=== PATIENT | female | born 1995 | race Caucasian/White ===

== ENCOUNTER 2017-03-23 12:17 | Emergency (ER) | payer OTHER ==
[2017-03-23 16:21] VITALS: BP 142/81
--- NOTE | 2017-03-23 17:17 | UC ---
Lower Extremity/Ankle HPI - HPI Summary HPI Summary: pt statse she rolled her L ankle while walking in heels night(2 days ago). she is c/o ongoing pain and swelling. she was not able to weight bear after but can walk on it today. denies other injury, fever, numb/weakness. - History of Current Complaint Chief Complaint: UCLowerExtremity Stated Complaint: LEFT ANKLE INJURY Time Seen by Provider: 03/23/17 17:04 Hx Obtained From: Patient Hx Last Menstrual Period: 03/18/17 ?: No Onset/Duration: Sudden Onset Severity Initially: Moderate Pain Intensity: 5 Aggravating Factor(s): Ambulation Alleviating Factor(s): Rest, Elevation, Ice Able to Bear Weight: Yes - Risk Factors Gout Risk Factors: Negative DVT Risk Factors: Negative - Allergies/Home Medications Allergies/Adverse Reactions: Allergies Allergy/AdvReac Type Severity Reaction Status Date / Time No Known Allergies Allergy Verified 03/23/17 16:21 Home Medications: Home Medications Norgestrel-Ethinyl Estradiol [Cryselle-28] 1 tab PO BEDTIME 03/23/17 [History Confirmed 03/23/17] Sertraline* [Zoloft*] 200 mg PO BEDTIME 03/23/17 [History Confirmed 03/23/17] PMH/Surg Hx/FS Hx/Imm Hx - Additional Past Medical History Additional PMH: depression and per triage notes - Surgical History Surgical History: None - Family History Known Family History: Positive: None - Social History Occupation: Student Alcohol Use: Weekly Substance Use Type: None Smoking Status (MU): Never Smoked Tobacco Review of Systems Constitutional: Negative Skin: Negative Neurovascular: Negative Musculoskeletal: Decreased ROM, Edema Is Patient Immunocompromised?: No All Other Systems Reviewed And Are Negative: Yes Physical Exam Triage Information Reviewed: Yes Appearance: Well-Appearing Vital Signs: Initial Vital Signs Temp 98 F 03/23/17 16:10 Pulse 74 03/23/17 16:10 Resp 14 03/23/17 16:10 BP 142/81 03/23/17 16:10 Pulse Ox 98 03/23/17 16:10 Vital Signs Reviewed: Yes Eyes: Positive: Conjunctiva Clear ENT: Positive: Normal ENT inspection Neck exam: Normal Respiratory: Positive: Lungs clear, Normal breath sounds, No respiratory distress Cardiovascular: Positive: RRR, No Murmur Abdomen Description: Positive: Nontender, No Organomegaly, Soft Bowel Sounds: Positive: Present Musculoskeletal: Positive: Other: - L ankle with mild generalized swelling and tenderness, pain limits rom. achilles is intact. no injury above or below the ankle with foot having full s/v/m function Neurological: Positive: Alert Skin Exam: Normal Lower Extremity Course/Dx - Course Course Of Treatment: distal fibular fx, joint space appears intact. will place in cam boot with crutches and orthopedic follow up. - Differential Dx/Diagnosis Provider Diagnoses: Fracture R ankle(distal fibula) Discharge - Discharge Plan Condition: Stable Disposition: HOME Discharge Disposition Comment: WEAR THE SPLINT AND USE THE CRUTCHES UNTIL CLEARED BY ORTHOPEDICS Patient Education Materials: Ankle Fracture (DC) Referrals: Sujit Muller MD [Medical Doctor] - 2 Days
--- NOTE | 2017-03-23 17:54 | RAD ---
Indication: LEFT ankle pain and edema following rolling injury yesterday. Medial and lateral pain and swelling. Comparison: No relevant prior exams available on the [facility] PACS for comparison. Technique: AP, mortise, and lateral views LEFT ankle. Report: Nondisplaced avulsion fracture at the caudal margin of the lateral malleolus. The ankle mortise remains congruent. Significant soft tissue swelling over the lateral malleolus. Talocrural joint effusion. IMPRESSION: Nondisplaced King type A fracture of the lateral malleolus.
== END 2017-03-23 18:14 | disposition home or self-care (01) ==
LOC: UCCORT 12:17
DX: S82.65XA Nondisplaced fracture of lateral malleolus of left fibula, initial encounter for closed fracture (principal); X50.0XXA Overexertion from strenuous movement or load, initial encounter; Y93.01 Activity, walking, marching and hiking; Y92.9 Unspecified place or not applicable; F32.9 Major depressive disorder, single episode, unspecified
CPT/HCPCS: 99203; G0463

== ENCOUNTER 2017-11-19 11:47 | Emergency (ER) | payer OTHER ==
[2017-11-19 13:11] VITALS: BP 131/75
--- NOTE | 2017-11-19 13:39 | UC ---
Complaint Female HPI - HPI Summary HPI Summary: urinary frequency , urgency x 1 days no dysuria, no fever, no chills, + hematuria - History Of Current Complaint Chief Complaint: UCGU Stated Complaint: URINARY COMPLAINT Time Seen by Provider: 11/19/17 13:12 Hx Obtained From: Patient Hx Last Menstrual Period: 11/13/17 ?: No Onset/Duration: Gradual Onset, Lasting Days - 1, Still Present Timing: Constant Severity Initially: Moderate Severity Currently: Moderate Pain Intensity: 0 Pain Scale Used: 0-10 Numeric Character: Not Applicable Alleviating Factor(s): Nothing Associated Signs And Symptoms: Negative: Fever, Back Pain, Vaginal Bleeding/ Discharge, Vaginal Discharge, Nausea, Vomiting(# Of Episodes =), Genital Swelling, Genital Blisters, Retained Foregin Body (Specify) - Allergies/Home Medications Allergies/Adverse Reactions: Allergies Allergy/AdvReac Type Severity Reaction Status Date / Time No Known Allergies Allergy Verified 11/19/17 13:09 PMH/Surg Hx/FS Hx/Imm Hx Previously Healthy: Yes - Surgical History Surgical History: None - Family History Known Family History: Positive: None Negative: Diabetes - Social History Alcohol Use: Weekly Substance Use Type: None Smoking Status (MU): Never Smoked Tobacco Review of Systems Constitutional: Negative Skin: Negative Eyes: Negative ENT: Negative Respiratory: Negative Cardiovascular: Negative Genitourinary: Hematuria, Frequency, Urgency Is Patient Immunocompromised?: No All Other Systems Reviewed And Are Negative: Yes Physical Exam Triage Information Reviewed: Yes Appearance: Well-Appearing, No Pain Distress, Well-Nourished Vital Signs: Initial Vital Signs Temp 98.3 F 11/19/17 13:08 Pulse 90 11/19/17 13:08 Resp 15 11/19/17 13:08 BP 131/75 11/19/17 13:08 Pulse Ox 98 11/19/17 13:08 Vital Signs Reviewed: Yes Eye Exam: Normal Eyes: Positive: Conjunctiva Clear ENT: Positive: Normal ENT inspection, Hearing grossly normal, Pharynx normal Neck: Positive: Supple, Nontender, No Lymphadenopathy Respiratory: Positive: Chest non-tender, Lungs clear, Normal breath sounds Cardiovascular: Positive: RRR, No Murmur, Pulses Normal Abdomen Description: Positive: Nontender, Soft. Negative: CVA Tenderness (R), CVA Tenderness (L), Distended, Guarding Bowel Sounds: Positive: Present Complaint Female Dx - Differential Dx/Diagnosis Provider Diagnoses: UTI Discharge - Sign-Out/Discharge Documenting (check all that apply): Patient Departure All imaging exams completed and their final reports reviewed: No Studies - Discharge Plan Condition: Stable Disposition: HOME Prescriptions: Sulfamethox/Trimethoprim DS* [Bactrim DS 800/160 TAB*] 1 tab PO BID #10 tab Patient Education Materials: Urinary Tract Infection in Women (DC) Referrals: No Primary Care Phys,NOPCP [Primary Care Provider] - If Needed - Billing Disposition and Condition Condition: STABLE Disposition: Home
== END 2017-11-19 13:28 | disposition home or self-care (01) ==
LOC: UCCORT 11:47
DX: N39.0 Urinary tract infection, site not specified (principal); B96.20 Unspecified Escherichia coli [E. coli] as the cause of diseases classified elsewhere
CPT/HCPCS: 81003; 87077; 87086; 87186; 99212; G0463